=== PATIENT | female | born 1960 | race Caucasian/White ===

== ENCOUNTER → 2018-01-19 | Outpatient (CLI) | payer OTHER ==
[2018-01-19 13:48] LABS: ABSOLUTE EOSINOPHILS # (AUTO) 0.3 10^3/uL (0.0-0.6); ABSOLUTE LYMPHOCYTES (AUTO) 2.1 10^3/uL (0.5-4.7); ABSOLUTE MONOCYTES (AUTO) 0.5 10^3/uL (0.1-1.4); ABSOLUTE NEUT (AUTO) 7.3 10^3/uL (1.7-8.2); BASOPHILS % (AUTO) 0.4 % (0-2); HEMATOCRIT 39.5 % (36.0-47.0); HEMOGLOBIN 13.1 g/dL (12.0-15.5); LYMPHOCYTES % (AUTO) 20.7 % (13-45); MEAN CORPUSCULAR HEMOGLOBIN 31.4 pg (27.0-33.4); MEAN CORPUSCULAR HGB CONC 33.2 g/dL (32.0-36.0); MEAN CORPUSCULAR VOLUME 95 fl (80-97); MONOCYTES % (AUTO) 5.2 % (3-13); PLATELET COUNT 428 10^3/uL (150-450); RED BLOOD COUNT 4.18 10^6/uL (3.72-5.28); RED CELL DISTRIBUTION WIDTH 13.1 % (11.5-14.0); SEGMENTED NEUTROPHILS % (AUTO) 70.7 % (42-78); TOTAL CELLS COUNTED % (AUTO) 100 %; WHITE BLOOD COUNT 10.3 10^3/uL (4.0-10.5)
[2018-01-19 13:49] LABS: APPEARANCE,URINE CLEAR; BILIRUBIN,URINE NEGATIVE (NEGATIVE); COLOR,URINE YELLOW; GLUCOSE, URINE NEGATIVE (NEGATIVE); KETONES,URINE NEGATIVE (NEGATIVE); LEUKOCYTE ESTERASE,URINE NEGATIVE (NEGATIVE); NITRITE,URINE NEGATIVE (NEGATIVE); PROTEIN,URINE NEGATIVE (NEGATIVE); UROBILINOGEN,URINE NEGATIVE mg/dL (<2.0)
[2018-01-19 13:53] LABS: INTERNATIONAL RATION (INR) 0.94; PROTHROMBIN TIME 13.3 SEC (11.4-15.4)
[2018-01-19 13:54] LABS: PARTIAL THROMBOPLASTIN TIME 32.7 SEC (23.5-35.8)
== END ==
LOC: OD 13:01
PROVIDERS: ATTEND Pain Medicine Interventional Pain Medicine
DX: G89.4 Chronic pain syndrome (principal)
CPT/HCPCS: 36415; 81001; 85025; 85610; 85730

== ENCOUNTER 2018-02-17 10:30 | Day surgery (SDC) | payer OTHER ==
[2018-02-16 10:34] LABS: APPEARANCE,URINE CLEAR; BILIRUBIN,URINE NEGATIVE (NEGATIVE); COLOR,URINE COLORLESS; GLUCOSE, URINE 150 mg/dL (NEGATIVE); KETONES,URINE NEGATIVE (NEGATIVE); LEUKOCYTE ESTERASE,URINE NEGATIVE (NEGATIVE); NITRITE,URINE NEGATIVE (NEGATIVE); PROTEIN,URINE NEGATIVE (NEGATIVE); URINE SPECIFIC GRAVITY 1.015; UROBILINOGEN,URINE NEGATIVE mg/dL (<2.0)
--- NOTE | 2018-02-16 12:29 | RADIOLOGY REPORT (SQ) ---
EXAM DESCRIPTION: CHEST PA/LATERAL COMPLETED DATE/TIME: 02/16/2018 12:20 pm REASON FOR STUDY: PRE OP COMPARISON: None. EXAM PARAMETERS: NUMBER OF VIEWS: two views TECHNIQUE: Digital Frontal and Lateral radiographic views of the chest acquired. RADIATION DOSE: NA LIMITATIONS: none FINDINGS: LUNGS AND PLEURA: No opacities, masses or pneumothorax. No pleural effusion. MEDIASTINUM AND HILAR STRUCTURES: No masses or contour abnormalities. HEART AND VASCULAR STRUCTURES: Heart normal size. No evidence for failure. BONES: No acute findings. HARDWARE: None in the chest. OTHER: No other significant finding. IMPRESSION: NO SIGNIFICANT RADIOGRAPHIC FINDING IN THE CHEST. TECHNICAL DOCUMENTATION: JOB ID: [id number] [employer]- All Rights Reserved Reading location - IP/workstation name: [email or web address]
[2018-02-16 12:45] LABS: HEMATOCRIT 37.7 % (36.0-47.0); HEMOGLOBIN 12.6 g/dL (12.0-15.5); MEAN CORPUSCULAR HEMOGLOBIN 31.5 pg (27.0-33.4); MEAN CORPUSCULAR HGB CONC 33.4 g/dL (32.0-36.0); MEAN CORPUSCULAR VOLUME 94 fl (80-97); PLATELET COUNT 418 10^3/uL (150-450); RED CELL DISTRIBUTION WIDTH 13.5 % (11.5-14.0); WHITE BLOOD COUNT 10.2 10^3/uL (4.0-10.5)
[2018-02-16 12:56] LABS: INTERNATIONAL RATION (INR) 0.97; PARTIAL THROMBOPLASTIN TIME 32.6 SEC (23.5-35.8); PROTHROMBIN TIME 13.6 SEC (11.4-15.4)
[2018-02-16 13:00] LABS: ANION GAP 10 (5-19); BLOOD UREA NITROGEN 24 mg/dL (7-20); CALCIUM 10.1 mg/dL (8.4-10.2); CARBON DIOXIDE 27 mmol/L (22-30); CHLORIDE 104 mmol/L (98-107); GLUCOSE 115 mg/dL (75-110); POTASSIUM 4.6 mmol/L (3.6-5.0); SODIUM 140.7 mmol/L (137-145)
--- NOTE | 2018-02-16 19:19 | EKG REPORT ---
SEVERITY:- BORDERLINE ECG - SINUS RHYTHM BORDERLINE T ABNORMALITIES, DIFFUSE LEADS : Confirmed by: Loly Thomas 16-Feb-2018 19:18:46
[~2018-02-17 10:30] MED LIST: CEFAZOLIN 1 GM/D5W RTU 1 GM/50 ML RTUPB IV PRN; LACTATED RINGERS 1000 ML IV PRN; LIDOCAINE 0.5% INJ-PF (5 MG/ML) 50 ML SDV SUBCUT PRN
[2018-02-17] MEDS ORDERED: PROPOFOL INJ 200 MG/20 ML VIAL IV ONE (11:44)
[2018-02-17] MEDS ORDERED: KETAMINE HCL INJ 500 MG/10 ML VIAL ONE (11:44)
[2018-02-17] MEDS ORDERED: FENTANYL CITRATE INJ/PF 100 MCG/2 ML AMPUL ONE ×2 (11:44→15:04)
[2018-02-17] MEDS ORDERED: MIDAZOLAM 2 MG/2 ML INJ ONE ×2 (11:44→13:38)
[2018-02-17] MEDS ORDERED: LIDOCAINE 1% INJ-PF (10 MG/ML) 30 ML SDV ONE ×2 (12:22→13:27)
[2018-02-17] MEDS ORDERED: SODIUM BICARBONATE 8.4% INJ 50 MEQ/50 ML DISP.SYRIN ONE (12:22)
[2018-02-17] MEDS ORDERED: BUPIVACAINE HCL 0.5%-EPI 1:200000 INJ/PF 30 ML VIAL ONE (12:23)
[2018-02-17] MEDS ORDERED: PROMETHAZINE HCL INJ 25 MG/1 ML VIAL IV PRN (14:05)
[2018-02-17] MEDS ORDERED: DIPHENHYDRAMINE HCL 50 MG/ML VIAL IV PRN (14:05)
[2018-02-17] MEDS ORDERED: MEPERIDINE HCL/PF INJ 25 MG/1 ML DISP.SYRIN IV PRN (14:05)
[2018-02-17] MEDS ORDERED: FENTANYL CITRATE INJ/PF 100 MCG/2 ML AMPUL IV PRN ×3 (14:05)
--- NOTE | 2018-02-17 14:53 | RADIOLOGY REPORT (SQ) ---
EXAM DESCRIPTION: NO CHG FLUORO; THORACOLUMBAR SPINE AP/LAT COMPLETED DATE/TIME: 02/17/2018 2:42 pm REASON FOR STUDY: SPINAL STIMULATOR PLCMT ASST WITH FLUORO IN OR COMPARISON: None. FLUOROSCOPY TIME: 2.5 minutes 11 Images saved to PACS LIMITATIONS: None. PROCEDURE: Neural stimulator electrode placement FINDINGS: Images obtained from fluoro document placement of neural stimulator electrodes in the lowe r thoracic spine. IMPRESSION: Neurostimulator electrode placement. COMMENT: PQRS 6045F: Fluoroscopy time of the procedure is documented in the report. TECHNICAL DOCUMENTATION: JOB ID: [id number] [employer]- All Rights Reserved Reading location - IP/workstation name: [email or web address]
--- NOTE | 2018-02-17 14:53 | RADIOLOGY REPORT (SQ) ---
EXAM DESCRIPTION: NO CHG FLUORO; THORACOLUMBAR SPINE AP/LAT COMPLETED DATE/TIME: 02/17/2018 2:42 pm REASON FOR STUDY: SPINAL STIMULATOR PLCMT ASST WITH FLUORO IN OR COMPARISON: None. FLUOROSCOPY TIME: 2.5 minutes 11 Images saved to PACS LIMITATIONS: None. PROCEDURE: Neural stimulator electrode placement FINDINGS: Images obtained from fluoro document placement of neural stimulator electrodes in the lowe r thoracic spine. IMPRESSION: Neurostimulator electrode placement. COMMENT: PQRS 6045F: Fluoroscopy time of the procedure is documented in the report. TECHNICAL DOCUMENTATION: JOB ID: [id number] [employer]- All Rights Reserved Reading location - IP/workstation name: [email or web address]
[2018-02-17] MEDS ORDERED: LIDOCAINE 2% INJ-PF (20 MG/ML) 2 ML AMPUL ONE (14:58)
--- NOTE | 2018-02-17 15:09 | OPERATIVE REPORT E ---
Operative Report NAME: FRANCES BO : 1960 AGE: 57Y DATE OF SURGERY: 02/17/2018 ROOM: PREOPERATIVE DIAGNOSIS: Post laminectomy syndrome with back and lower extremity pain. POSTOPERATIVE DIAGNOSIS: Post laminectomy syndrome with back and lower extremity pain. PRIMARY SURGEON: HELIO MENDOZA M.D. CASE AIDE SURGEON: ANAT HI M.D. FINDINGS: Consistent with the above diagnosis. COMPLICATIONS: None. BLOOD LOSS: 10 mL ANESTHESIA: MAC. SPECIMENS REMOVED: None. TECHNICAL SURGICAL PROCEDURE: Implantation of dual spinal cord stimulating electrodes under fluoroscopic guidance, implantation of programmable rechargeable pulse generator, and complex programming of the spinal cord stimulator system. PROCEDURE NOTE: After obtaining informed consent advising the patient of the risks and benefits, including serious neurological injury, bleeding, infection, paralysis, nerve injury, aggravation of pain, failure to obtain pain relief, allergic reaction, and she was taken to the operating room and placed comfortably in the prone position. She was prepped with chlorhexidine with appropriate drying time prior to draping. Monitors were applied per Anesthesia protocol and MAC anesthesia was administered. Using fluoroscopy, the lumbar spine was evaluated and suitable entrance site to the lumbar spine was identified at the L1-L2 interspace using right and left paramedian techniques. After identifying suitable entrance site and preselected pulse generator site over the right gluteal region, both regions were anesthetized in select incision regions with 1% lidocaine followed by bupivacaine with epinephrine. Sharp and blunt dissection were performed down in both locations, the right gluteal region for preparation for the pulse generator pocket and the lumbar incision for access to the lumbar spine and lead placement. When a suitable lumbar spine site was created, further inspection with fluoroscopy was performed and the paraspinal musculature to the L1-L2 interspace were identified. Using right paramedian techniques, Tuohy needles, 14 gauge, were inserted and entered the epidural space without difficulty. Loss of resistance to saline was utilized. No heme, cerebrospinal fluid, or paresthesias were noted. Dual electrodes were then advanced through the needles up to the top of T8 to the mid portion of the T10. A trial of stimulation was then performed and very good stimulation was obtained in all affected locations. A decision was made to implant. Then, 0-Mersilene pursestrings were placed around each needle followed by distal anchor sutures. Under fluoroscopic guidance, the right needle was removed with care being taken not to dislodge the electrode. The pursestring was secured followed by placement of the anchor. The anchor was then secured with both of the existing Mersilene sutures. This was then repeated on the left side without difficulty. All wounds were then copiously irrigated. Then, 1% lidocaine was used to anesthetize the tissues between the pocket and the lumbar spine. The leads were then tunneled without difficulty from the lumbar spine to the pulse generator pocket. They were dried. The left-most lead was connected to the upper pole of the pulse generator and the right lead was connected to the alternative pole. The hex nuts were all secured. Impendence was tested and was found to be satisfactory. Decision was made to finish the implant. Again, all wounds were copiously irrigated with Betadine-containing irrigation solution. Hemostasis was inspected and found to be satisfactory. Both wounds were then closed with inverted vertical mattress sutures using 3-0 Polysorb. The lumbar incision had a dual layer of Polysorb closure. The skin was then sealed with both locations with Dermabond, tape, and cement. When this was allowed to dry, Telfa and Tegaderms were placed over the wounds. She was then taken to the PACU for further postoperative care and monitoring. DICTATING PHYSICIAN: ANAT HI M.D. [id number] PHY#: [id number] ID: [id number] JOB#: [id number] ACCT: [id number] cc:ANAT HI M.D. >
[2018-02-17] MEDS ORDERED: CEFAZOLIN INJ 1 GM VIAL ONE (15:23)
[2018-02-17] MEDS ORDERED: OXYCODONE-ACETAMINOPHEN 5-325 MG TABLET PO PRN (15:37)
[2018-02-17 17:30] VITALS: BP 116/60
== END 2018-02-17 16:50 | disposition home or self-care (01) ==
LOC: OROUT 10:30
PROVIDERS: ATTEND Pain Medicine Interventional Pain Medicine
DX: G89.4 Chronic pain syndrome (principal); M96.1 Postlaminectomy syndrome, not elsewhere classified; I10 Essential (primary) hypertension; M19.90 Unspecified osteoarthritis, unspecified site; M54.17 Radiculopathy, lumbosacral region; Z79.899 Other long term (current) drug therapy; G43.909 Migraine, unspecified, not intractable, without status migrainosus; F32.9 Major depressive disorder, single episode, unspecified
CPT/HCPCS: 63650; 63685; C1820; 1936; 36415; 71046; 72080; 80048; 81001; 82962; 85027; 85610; 85730; 93005; 93010; C1778; J0690; J2250; J2704; J3010; J3490

== ENCOUNTER → 2019-08-09 | Outpatient (CLI) | payer OTHER ==
--- NOTE | 2019-08-09 14:56 | RADIOLOGY REPORT (SQ) ---
EXAM DESCRIPTION: KNEE RIGHT 4 VIEWS COMPLETED DATE/TIME: 08/09/2019 10:18 am REASON FOR STUDY: PAIN IN RIGHT KNEE M25.561 PAIN IN RIGHT KNEE COMPARISON: None. NUMBER OF VIEWS: Four views. TECHNIQUE: AP, lateral, and both oblique radiographic images acquired of the right knee. LIMITATIONS: None. FINDINGS: MINERALIZATION: Normal. BONES: No acute fracture or dislocation. No worrisome bone lesions. Surgical changes in the proximal tibia with hardware. Joint space narrowing with sclerosis and osteophytes in all 3 compartments. JOINT: No effusion. No chondrocalcinosis. OTHER: No other significant finding. IMPRESSION: CHRONIC DEGENERATIVE CHANGES. SURGICAL CHANGES IN THE PROXIMAL TIBIA WITH HARDWARE. TECHNICAL DOCUMENTATION: JOB ID: [id number] [employer]- All Rights Reserved Reading location - IP/workstation name: [email or web address]
== END ==
LOC: OD 10:02
PROVIDERS: ATTEND Pain Medicine Interventional Pain Medicine
DX: M25.561 Pain in right knee (principal)